=== PATIENT | female | born 1970 | race Caucasian/White ===

== ENCOUNTER → 2016-07-17 | Day surgery (SDC) | payer OTHER ==
[2016-06-14 12:38] VITALS: Ht 167.6 cm; Wt 61.8 kg
[~2016-07-17] VITALS: Ht 167.6 cm; Wt 61.8 kg
[~2016-07-17] MED LIST: ATROPINE SULFATE 0.1 MG/ML 5ML SYR IV PRN; CEFAZOLIN 1000MG/55 ML D5W IV SCH; CETI10TA10 PO; DEXAMETHASONE SOD INJ 4 MG/ML VIAL ONE; EpHEDrine SULFATE INJ 50 MG/ML AMP IV PRN; EpINEphrine INJ 1MG/ML AMP 1 MG/ML AMP ONE; FENTANYL CITRATE INJ 50 MCG/1 ML 2 ML VIAL ONE; FLUT0.15 NAE; KETO10TA PO; KETOROLAC TROMETHAMINE 30 MG/ML VIAL ONE; LACTATED RINGER'S 1000ML 1,000 ML IV SCH; LIDOCAINE HCL 2% 2 ML VIAL (20MG/ML) ONE; MIDAZOLAM HCL 1 MG/ML 2ML VIAL ONE; ONDANSETRON INJ 2 MG/ML 2 ML VIAL IV PRN; ONDANSETRON INJ 2 MG/ML 2 ML VIAL ONE; OXYC-57 PO; OXYCODONE/ACETAMINOPHEN 5-325 TAB PO PRN; PROPOFOL IV EMULSION 10 MG/ML 20 ML VIAL IV ONE; ROPIVACAINE 0.5% 5 MG/ML 30 ML VIAL ONE; SODIUM CHLORIDE 0.9% 1000ML 1,000 ML IV SCH
--- NOTE | 2016-07-17 06:59 | History & Physical Bridge - [place] ---
H&P Re-Evaluation Bridge Note: I have examined the patient, reviewed the History & Physical and in the interval since the performance of the History & Physical I have noted the following changes of clinical significance: No changes noted
--- NOTE | 2016-07-17 08:46 | [facility] Post Operative Brief Note ---
Immediate Operative Summary Operative Date Jul 17, 2016. Pre-Operative Diagnosis Right knee medial and lateral meniscal tear, anterior cruciate ligament tear Post-Operative Diagnosis Same as preop + DJD Procedure(s) Performed Right Knee Arthroscopy, Partial Medial and lateral Meniscectomy, Chondroplasty of Medial Femoral Condyle Surgeon Dr. Zamora Quality Rn Surgeon(s) Marino Jordan PA-C Estimated Blood Loss minimal Findings Medial + Lateral Meniscus Tears + DJD Specimens None Anesthesia General Complication(s) None Disposition Recovery Room / PACU
--- NOTE | 2016-07-17 08:47 | Discharge Instructions-SurgCtr ---
Discharge Instructions Date of Service Jul 17, 2016. Visit Reason for Visit: Right Knee Acl, Medial Meniscus Tears Discharge Discharge Diagnosis / Problem: RIGHT MEDIAL AND LATERAL MENISCUS TEARS, ACL TEAR Discharge Goals Goal(s): Decrease discomfort, Improve function, Therapeutic intervention Activity Recommendations Activity Limitations: per Instructions/Follow-up section Weightbearing Status: Right weightbearing (as tolerated) Anesthesia . Post Anesthesia Instructions: If you have had General Anesthesia or IV Sedation: * Do not drive today. * Resume driving when surgeon permits. * Do not make important decisions or sign legal documents today. * Call surgeon for: 1. Temperature elevations greater than 101 degrees F. 2. Uncontrollable pain. 3. Excessive bleeding. 4. Persistent nausea and vomiting. 5. Medication intolerance (nausea, vomiting or rash). * For nausea and vomiting use only clear liquids such as: tea, soda, bouillon until nausea subsides, then gradually increase diet as tolerated. * If you have any concerns or questions, call your surgeon's office. If physician is unavailable and it is an emergency, call 911 or go to the nearest emergency room. . Instructions / Follow-Up Instructions / Follow-Up MEDICATIONS: * Resume previous medications unless instructed otherwise by your surgeon. * Always take pain medication on a full stomach or with food to avoid upset stomach. * Do not drink alcohol or drive while taking narcotics. * Ibuprofen or Tylenol may be taken if narcotic not needed. NO IBUPROFEN WHILE TAKING TORADOL SPECIAL CARE INSTRUCTIONS: __ None _X_ Keep extremity elevated and iced x 48 hours; apply ice 20-30 minutes 8-10 times/day. May remove at night. __ Crutches __ May discard when able __ Brace/Post-op shoe __ 24 hrs/day __ Remove at night _X_ Dressing __ Maintain until seen in office, may shower with plastic over site _X_ Remove dressings in 24-48 hours and then may shower _X_ Cover incisions with band-aids after showering __ Do not remove steri-strips Call physician if chills or temperature rises above 102 degrees or pain unrelieved by prescribed pain medications. Office [phone] FOLLOW UP IN 2 WEEKS Diet Recommendations Home Diet: resume previous diet Procedures Procedures Performed: Right Knee Arthroscopy, Partial Medial and lateral Meniscectomy, Chondroplasty of Medial Femoral Condyle Pending Studies Studies pending at discharge: no Medical Emergencies . Who to Call and When: Medical Emergencies: If at any time you feel your situation is an emergency, please call 911 immediately. . Non-Emergent Contact Non-Emergency issues call your: Surgeon . . "Provider Documentation" section prepared by Mitchell Jordan. .
--- NOTE | 2016-07-17 09:07 | OPERATIVE REPORT ---
DATE OF OPERATION: 07/17/2016 SURGEON: Dr. Ryan Zamora. RESORT MANAGER: GRANT Preston PREOPERATIVE DIAGNOSES: 1. Right anterior cruciate ligament deficient knee. 2. Right knee medial meniscus tear. 3. Right knee lateral meniscus tear. POSTOPERATIVE DIAGNOSES: 1. Right knee anterior cruciate ligament tear off the femur. 2. Right knee medial meniscus tear. 3. Right knee lateral meniscus tear. 4. Right knee degenerative joint disease with some grade 2 chondrosis of the medial femoral condyle. PROCEDURES PERFORMED: 1. Right knee exam under anesthesia. 2. Right knee diagnostic arthroscopy. 3. Right knee arthroscopic partial medial meniscectomy. 4. Right knee arthroscopic partial lateral meniscectomy. 5. Right knee chondroplasty of the medial femoral condyle. COMPLICATIONS: None. ESTIMATED BLOOD LOSS: Minimal. TOURNIQUET TIME: 35 minutes at 300 mmHg. ANESTHESIA: General. SPECIMENS: None. OPERATIVE INDICATIONS: The patient is a 46-year-old female who injured her knee about 2-1/2 months ago, skiing. She was seen and diagnosed with an ACL and MCL tear. On MRI, she also had a medial and lateral meniscus tears. She restored her range of motion. Her MCL has healed. We were initially planning to fix her ACL, but she elected to hold off on that and just to have her meniscus addressed. The patient elected to proceed with a partial medial and partial lateral meniscectomies. OPERATIVE FINDINGS: Examination under anesthesia of the right knee revealed a small knee effusion. Her range of motion is 0-135. She had fairly good endpoint to a Matti test, but did have significant more translation on the right side than the left. She had a grade 1 pivot glide only. No significant varus or valgus instability. Enid's revealed a little bit of adhesiolysis with terminal flexion. Enid's test was negative. ARTHROSCOPIC FINDINGS: Arthroscopic findings revealed a small knee effusion. The undersurface of the patella and trochlea were well preserved. In the intercondylar notch, the ACL looked pretty normal, but it was clearly injured at its femoral attachment. It was a little bit scarred down to the PCL. The PCL was intact. In the medial compartment, there was a complex degenerative tear of the posterior horn of the medial meniscus. There were some grade 2 changes and flap tears of the cartilage at the end of the medial femoral condyle. In the lateral compartment, there was a complex lateral meniscus tear with a portion of this flipped into the notch area just posterior to the ACL. There were some mild arthritic changes. OPERATIVE PROCEDURE: The patient was taken to the operating room, identified and placed on the operating table in the supine position. All contact areas were appropriately padded. IV antibiotics were provided by anesthesia team. A general anesthetic was implemented by anesthesia team. Right thigh tourniquet was then placed. The right knee was then examined under anesthesia with findings as described above. The right leg was then prepped and draped in the usual sterile fashion. The right leg was elevated and exsanguinated with Esmarch and tourniquet was placed at 300 mmHg. Routine right knee arthroscopy was then performed through typical anteromedial and anterolateral portals. Superior outflow portal was established for outflow. I did have to resect some of the fat pad in order to adequately see. I probed the ACL. The findings were as described above. We did not need to do any ACL work as there was nothing impinging motion. Attention was then drawn to the medial compartment. I probed the medial meniscus. It was clearly unstable posteriorly. I removed the posterior horn of the medial meniscus tear in a piecemeal fashion. I was convinced that without doing this, she would have developed a bucket-handle tear over time. I did use the shaver to debride the loose cartilage at the end of the medial femoral condyle, as it was towards the notch area where there some loose flaps. Attention was then drawn to the lateral meniscus. We did use motorized and hand controlled instruments. A partial lateral meniscectomy was then performed. I resected the anterior and posterior flap portions of this tear and a part in the intercondylar notch area. There was some scuffing of the rest of the lateral meniscus, which I left intact. It was clearly stable. Once this was complete, the arthroscopic instruments were placed throughout the knee joint. All extraneous debris was removed. The arthroscopic instruments were removed from the joint. The portals were closed with 3-0 Prolene suture in a simple fashion. The knee was injected with 30 mL of 0.5% ropivacaine with epinephrine and 30 mg of Toradol. A sterile dressing with Xeroform, 4 x 4, sterile cast padding and Shilo bandage were applied. The tourniquet was then let down for final tourniquet time of 35 minutes. The patient was then brought out of general anesthesia and transferred to the recovery room in stable condition. The patient tolerated the procedure well with no complications. All needle and sponge counts were correct at the end of the operation. I attest to the content of the Intraoperative Record and any orders documented therein. Any exceptions are noted below. MTDD
[2016-07-17] MEDS: FENTANYL CITRATE INJ 50 MCG/1 ML 2 ML VIAL IV PRN ×4 (09:08→09:31)
[2016-07-17 10:05] VITALS: TEMP 37
[2016-07-17 10:25] VITALS: BP 125/80; PULSE 81; O2SAT 100
--- NOTE | 2016-07-17 10:25 | Anesthesia Progress Nt - [facility] ---
Anesthesia Post Op Note Date & Time Jul 17, 2016 at 10:25 Vital Signs Pain Intensity: 4.0 Vital Signs Past 12 Hours Date Time Temp Pulse Resp B/P Pulse Ox O2 Delivery O2 Flow Rate FiO2 07/17/16 10:05 37.0 82 16 126/82 98 Room Air 07/17/16 09:46 80 15 07/17/16 09:46 77 15 100 07/17/16 09:45 135/93 07/17/16 09:43 36.7 80 12 135/93 100 Room Air 07/17/16 09:41 83 9 07/17/16 09:41 86 9 100 07/17/16 09:40 139/91 07/17/16 09:36 95 12 137/82 100 07/17/16 09:36 92 12 07/17/16 09:31 91 14 07/17/16 09:31 90 14 100 07/17/16 09:30 143/94 07/17/16 09:26 90 12 07/17/16 09:26 91 12 100 07/17/16 09:25 132/89 07/17/16 09:21 93 16 07/17/16 09:21 93 16 100 07/17/16 09:20 142/85 07/17/16 09:17 130/93 07/17/16 09:16 97 13 100 07/17/16 09:16 95 13 07/17/16 09:11 93 9 100 07/17/16 09:11 92 9 07/17/16 09:06 96 10 133/89 100 07/17/16 09:06 95 10 07/17/16 09:01 95 11 137/89 100 07/17/16 09:01 97 11 07/17/16 08:56 89 7 07/17/16 08:56 88 7 100 07/17/16 08:55 137/89 07/17/16 08:52 36.3 88 12 134/87 100 Mask 6 07/17/16 08:51 87 13 07/17/16 08:51 89 13 134/87 100 07/17/16 06:45 36.7 87 16 119/85 97 Room Air Notes Mental Status: alert / awake / arousable, participated in evaluation Pt Amnestic to Procedure: Yes Nausea / Vomiting: adequately controlled Pain: adequately controlled Airway Patency, RR, SpO2: stable & adequate BP & HR: stable & adequate Hydration State: stable & adequate Anesthetic Complications: no major complications apparent
== END | disposition home or self-care (01) ==
LOC: X.SURG 06:33
PROVIDERS: ATTEND Orthopaedic Surgery Sports Medicine
DX: S83.241A Other tear of medial meniscus, current injury, right knee, initial encounter (principal); S83.281A Other tear of lateral meniscus, current injury, right knee, initial encounter; S83.511A Sprain of anterior cruciate ligament of right knee, initial encounter; M17.11 Unilateral primary osteoarthritis, right knee; X58.XXXA Exposure to other specified factors, initial encounter; Y93.23 Activity, snow (alpine) (downhill) skiing, snowboarding, sledding, tobogganing and snow tubing

== ENCOUNTER → 2016-09-18 | Outpatient (CLI) | payer OTHER ==
[~2016-09-18] MED LIST changes: -ATROPINE SULFATE 0.1 MG/ML 5ML SYR IV PRN; -CEFAZOLIN 1000MG/55 ML D5W IV SCH; -DEXAMETHASONE SOD INJ 4 MG/ML VIAL ONE; -EpHEDrine SULFATE INJ 50 MG/ML AMP IV PRN; -EpINEphrine INJ 1MG/ML AMP 1 MG/ML AMP ONE; -FENTANYL CITRATE INJ 50 MCG/1 ML 2 ML VIAL ONE; -KETO10TA PO; -KETOROLAC TROMETHAMINE 30 MG/ML VIAL ONE; -LACTATED RINGER'S 1000ML 1,000 ML IV SCH; -LIDOCAINE HCL 2% 2 ML VIAL (20MG/ML) ONE; -MIDAZOLAM HCL 1 MG/ML 2ML VIAL ONE; -ONDANSETRON INJ 2 MG/ML 2 ML VIAL IV PRN; -ONDANSETRON INJ 2 MG/ML 2 ML VIAL ONE; -OXYCODONE/ACETAMINOPHEN 5-325 TAB PO PRN; -PROPOFOL IV EMULSION 10 MG/ML 20 ML VIAL IV ONE; -ROPIVACAINE 0.5% 5 MG/ML 30 ML VIAL ONE; -SODIUM CHLORIDE 0.9% 1000ML 1,000 ML IV SCH
== END ==
LOC: C.PAPS 18:02
PROVIDERS: ATTEND Obstetrics & Gynecology
DX: Z12.4 Encounter for screening for malignant neoplasm of cervix (principal); Z85.41 Personal history of malignant neoplasm of cervix uteri

== ENCOUNTER → 2017-03-19 | Day surgery (SDC) | payer OTHER ==
[~2017-03-19] VITALS: Ht 165.1 cm; Wt 62.7 kg
[~2017-03-19] MED LIST changes: +ATROPINE SULFATE 0.1 MG/ML 5ML SYR IV PRN; +BUPIVACAINE 0.25% 2.5MG/ML PF 10 ML VIAL ONE; +CEFAZOLIN 1000MG IV PUSH 5 ML IV SCH; +CEFAZOLIN SOD 1 GM VIAL ONE; +CEFAZOLIN SOD 1000MG/5 ML IV PUSH IV ONE; -CETI10TA10 PO; +DEXAMETHASONE SOD INJ 4 MG/ML VIAL ONE; +EpHEDrine SULFATE INJ 50 MG/ML AMP IV PRN; +EpINEphrine HCL INJ 1 MG/ML 5ML SYRINGE ONE; +FENTANYL CITRATE INJ 50 MCG/1 ML 2 ML VIAL ONE; +HYDROmorphone INJ 0.5 MG/0.5 ML SYR ONE; +HYDROmorphone INJ 1 MG/ML SYR IV PRN; +KETO10TA PO; +KETOROLAC TROMETHAMINE 30 MG/ML VIAL ONE; +LACTATED RINGER'S 1000ML 1,000 ML IV SCH; +LIDOCAINE HCL 2% 2 ML VIAL (20MG/ML) ONE; +MIDAZOLAM HCL 1 MG/ML 2ML VIAL ONE; +ONDANSETRON INJ 2 MG/ML 2 ML VIAL IV PRN; +ONDANSETRON INJ 2 MG/ML 2 ML VIAL ONE; +OXYCODONE/ACETAMINOPHEN 5-325 TAB PO PRN; +PROPOFOL IV EMULSION 10 MG/ML 20 ML VIAL IV ONE; +ROPIVACAINE 0.5% 5 MG/ML 30 ML VIAL ONE; +SODIUM CHLORIDE 0.9% 1000ML 1,000 ML IV SCH
[2017-03-19 09:36] VITALS: Ht 165.1 cm; Wt 62.7 kg
--- NOTE | 2017-03-19 13:33 | Discharge Instructions-SurgCtr ---
Discharge Instructions Date of Service Mar 19, 2017. Visit Reason for Visit: Right Knee Rupture Acl, Knee Pain Discharge Discharge Diagnosis / Problem: right knee ACL tear, lateral meniscus tear Discharge Goals Goal(s): Decrease discomfort, Improve function, Therapeutic intervention Activity Recommendations Activity Limitations: per Instructions/Follow-up section Weightbearing Status: Right weightbearing (as tolerated with brace ) Anesthesia . Post Anesthesia Instructions: If you have had General Anesthesia or IV Sedation: * Do not drive today. * Resume driving when surgeon permits. * Do not make important decisions or sign legal documents today. * Call surgeon for: 1. Temperature elevations greater than 101 degrees F. 2. Uncontrollable pain. 3. Excessive bleeding. 4. Persistent nausea and vomiting. 5. Medication intolerance (nausea, vomiting or rash). * For nausea and vomiting use only clear liquids such as: tea, soda, bouillon until nausea subsides, then gradually increase diet as tolerated. * If you have any concerns or questions, call your surgeon's office. If physician is unavailable and it is an emergency, call 911 or go to the nearest emergency room. . Instructions / Follow-Up Instructions / Follow-Up MEDICATIONS: * Resume previous medications unless instructed otherwise by your surgeon. * Always take pain medication on a full stomach or with food to avoid upset stomach. * Do not drink alcohol or drive while taking narcotics. * Ibuprofen or Tylenol may be taken if narcotic not needed. No ibuprofen while taking toradol SPECIAL CARE INSTRUCTIONS: __ None _x_ Keep extremity elevated and iced x 48 hours; apply ice 20-30 minutes 8-10 times/day. May remove at night. _x_ Crutches __ May discard when able _x_ Brace/Post-op shoe __ 24 hrs/day __ Remove at night _x_ Dressing __ Maintain until seen in office, may shower with plastic over site _x_ Remove dressings in 24-48 hours and then may shower x__ Cover incisions with band-aids after showering x__ Do not remove steri-strips Call physician if chills or temperature rises above 102 degrees or pain unrelieved by prescribed pain medications. Office [phone] follow up in 2 weeks Diet Recommendations Home Diet: resume previous diet Procedures Procedures Performed: Right Knee Arthroscopic Anterior Cruciate Ligament Reconstruction Using Anterior Tibialis Tendon Allograft, Partial Lateral Meniscectomy Pending Studies Studies pending at discharge: no Medical Emergencies . Who to Call and When: Medical Emergencies: If at any time you feel your situation is an emergency, please call 911 immediately. . Non-Emergent Contact Non-Emergency issues call your: Surgeon . . "Provider Documentation" section prepared by Mitchell Jordan. .
--- NOTE | 2017-03-19 13:35 | [facility] Post Operative Brief Note ---
Immediate Operative Summary Operative Date Mar 19, 2017. Pre-Operative Diagnosis Right Knee Rupture Anterior Cruciate Ligament, Knee Pain Post-Operative Diagnosis Same + Lateral Meniscus Tear + DJD Procedure(s) Performed Right Knee Arthroscopic Anterior Cruciate Ligament Reconstruction Using Anterior Tibialis Tendon Allograft, Partial Lateral Meniscectomy Surgeon Dr. Zamora Technical Spec Surgeon(s) Nasim Jordan PA-C Estimated Blood Loss Minimal Findings Right ACL Tear + DJD + Lateral Meniscus Tear Specimens None Anesthesia General Complication(s) None Disposition Recovery Room / PACU
[2017-03-19] MEDS: FENTANYL CITRATE INJ 50 MCG/1 ML 2 ML VIAL IV PRN ×4 (13:46→14:11)
[2017-03-19 15:00] VITALS: TEMP 37
--- NOTE | 2017-03-19 15:04 | OPERATIVE REPORT ---
DATE OF OPERATION: 03/19/2017 SURGEON: Ryan Zamora MD AIR[employer] MECHANIC: GRANT Preston PREOPERATIVE DIAGNOSES: 1. 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 2. Right knee degenerative joint disease. POSTOPERATIVE DIAGNOSES: 1. 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 2. Right knee small inner rim of the lateral meniscus tear. 3. Right knee degenerative joint disease. PROCEDURES PERFORMED: 1. Right knee exam under anesthesia. 2. Right knee diagnostic arthroscopy. 3. Right knee arthroscopic anterior cruciate ligament reconstruction with an 8-mm tibialis anterior allograft. 4. Right knee partial lateral meniscectomy. COMPLICATIONS: None. ESTIMATED BLOOD LOSS: Minimal. TOURNIQUET TIME: 85 minutes at 300 mmHg. OPERATIVE INDICATIONS: The patient is a 46-year-old fairly active female who injured her knee initially just about a year ago when skiing. She was seen in clinic and diagnosed with an ACL tear. An MRI revealed medial and lateral meniscus tears. We initially had considered fixing her ACL, but she elected just to proceed with the arthroscopy and meniscal work at that time. She has recovered from that. She continued to have a sense of instability in her knee. She elected to proceed with ACL reconstruction. OPERATIVE FINDINGS: Examination under anesthesia of the right knee revealed no significant effusion. Range of motion was full extension to 135 degrees of flexion. She did have an increased translation in Matti compared to the opposite side, but fairly good endpoint. She had a grade 1-2 pivot. She had no varus or valgus instability. Enid's is negative for mechanical symptoms. There was no posterolateral rotatory instability. ARTHROSCOPIC FINDINGS: Arthroscopic findings revealed no significant effusion. She did have a little bit wear and grade 1 changes of the patellofemoral joint. In the intercondylar notch, the ACL was scarred down to the PCL. There was no attachment to the lateral wall. The PCL was intact. In the medial compartment, the articular surface showed some Grade 2 changes and the meniscus was fairly well maintained. The previous meniscectomy was apparent, but there were no new meniscal tears. In the lateral compartment , there were some mild degenerative changes. She did have just a small inner rim of the lateral meniscus tear in the white zone. OPERATIVE PROCEDURE: The patient was taken to the operating room, identified and placed on the operating table in the supine position. All contact areas were appropriately padded. IV antibiotics were provided by anesthesia team. An adductor canal block was applied in the holding area. A right thigh tourniquet was then placed. There general anesthetic was implemented. The patient did receive IV antibiotics. The right knee was then examined under anesthesia with the findings as described above. The right leg was then prepped and draped in the usual sterile fashion. The right leg was elevated and exsanguinated with Esmarch and tourniquet was placed at 300 mmHg. About 3-4 cm incision was made directly over the hamstring tendons. Sharp dissection was carried out through the subcutaneous tissues down to the level of the sartorius fascia. The subcutaneous tissue was mobilized circumferentially. An oblique incision was made in the sartorius fascia and the hamstring tendons were then taken sharply off the anterior face of the tibia. I isolated each tendon and a #2 Ti-Cron whipstitch was placed in the end of each tendon. Upon harvesting the tendons, both of them cut at about 10 cm in length. The tendons themselves were quite small and I got up into a very fairly thin tendon tissue pretty quickly. In light of this, I did not feel I could use these tendons. So, we elected to use the tibialis anterior allograft. We called for a tibialis anterior allograft tendon, which took about 25 minutes to obtain. While this was done, a routine right knee arthroscopy was then performed through typical anteromedial and anterolateral portals. A superolateral outflow portal was established for outflow. The remnant of the ACL was excised. A small notchplasty was performed. I then examined the meniscus. With the use of motorized and hand control instruments, I did resect the inner rim of the lateral meniscus, which was a fairly small segment of her lateral meniscus. The other edges of a previous partial meniscectomy looked to be healed nicely. Attention was then drawn towards the ACL reconstruction. With the use of the tibial guide set at 50 degrees, a guidewire was placed in the area of the proposed tibial tunnel. It was overreamed with the 8-mm solid reamer. The tunnel was cleaned of all debris. At this point, the allograft had arrived. It was thawed. The allograft itself measured 8 mm in diameter when folded over. The ends of the allograft were for about 5 cm and a #2 Ti-Cron suture was placed in each end of the tendon. The tendon was then marked and set aside for later implantation. The knee was maximally flexed. The 6-mm [id number] guide was then placed in the anteromedial portal. The knee was maximally flexed and a guidewire was placed in the area of the proposed femoral tunnel. It was overreamed with a 4.5-mm Endobutton drill bit. The tunnel length measured about 32 mm in length. Therefore, we selected 10-mm Endobutton. The tunnel was cleaned of all debris. I then overreamed the guidewire with an 8-mm acorn reamer for a distance of 28 mm. I tried to stay short of the cortex, but on examining the whole, I felt that we had breached the cortex and the standard Endobutton would not work. Therefore, the Xtendobutton device was obtained. A 10-mm closed loop Endobutton was selected. The graft was then placed over the closed loop Endobutton, which was passed through the Xtendobutton. A Beath pin was then used to pass the graft. The Xtendobutton was passed through the tibial tunnel up into the femoral tunnel and flipped. The graft was cycled several times and brought out into full extension. There was no impingement. The graft was appropriately tensioned. I then brought the knee out into full extension. The graft was then tensioned with the Intrafix tensioner at 20 pounds of tension. The tunnel was then dilated. A small Biocryl Intrafix sheath was placed followed by a 6.8 Biocryl Intrafix screw. The knee was examined and there was no pivot and no Matti test. I placed the scope back in the knee and the graft was appropriately tensioned in both flexion and extension. The scope was then placed throughout the knee and all extraneous debris was removed. The arthroscopic instruments were then removed from the joint. The portals were then closed with 3-0 Prolene suture in a simple fashion. The knee was then injected with 30 mL of 0.5% ropivacaine with epinephrine and 30 mg of Toradol. The tourniquet was then let down for a tourniquet time of 85 minutes. Hemostasis was assured with use of electrocautery. The anteromedial wound was then irrigated. The subcutaneous tissues were then closed with 2-0 Dexon suture in a buried interrupted fashion. Skin was closed with 3-0 Prolene suture in a subcuticular fashion. The leg was then cleaned and dried and a sterile dressing of Xeroform, 4 x 4, sterile cast padding, Shilo bandage, cold pack, and knee immobilizer applied. The patient then brought out of general anesthesia and transferred to the recovery room in stable condition. The patient tolerated the procedure well with no complications. All needle and sponge counts were correct at the end of the operation. I attest to the content of the Intraoperative Record and any orders documented therein. Any exceptions are noted below. MTDD
[2017-03-19 15:40] VITALS: BP 117/72; PULSE 92; O2SAT 99
--- NOTE | 2017-03-19 15:54 | Anesthesiology Progress Note ---
Anesthesia Post Op Note Date & Time Mar 19, 2017 at 15:54 Vital Signs Pain Intensity: 5.0 Vital Signs Past 12 Hours Date Time Temp Pulse Resp B/P (MAP) Pulse Ox O2 Delivery O2 Flow Rate FiO2 03/19/17 15:40 92 16 117/72 (87) 99 Room Air 03/19/17 15:00 37.0 93 16 127/84 (98) 98 Room Air 03/19/17 14:52 89 16 126/91 (100) 100 Room Air Mask 03/19/17 14:46 133/87 03/19/17 14:45 94 13 100 03/19/17 14:45 92 13 03/19/17 14:41 121/83 03/19/17 14:40 90 11 130/88 100 03/19/17 14:40 90 11 03/19/17 14:35 96 6 100 03/19/17 14:35 95 6 03/19/17 14:30 96 10 100 03/19/17 14:30 96 10 03/19/17 14:26 120/82 03/19/17 14:25 85 7 100 03/19/17 14:25 86 7 03/19/17 14:21 118/82 03/19/17 14:20 85 10 100 03/19/17 14:20 84 10 03/19/17 14:16 122/79 03/19/17 14:15 83 12 03/19/17 14:15 82 12 100 03/19/17 14:11 126/75 03/19/17 14:10 88 12 100 03/19/17 14:10 88 12 03/19/17 14:06 120/78 03/19/17 14:05 82 14 100 03/19/17 14:05 84 14 03/19/17 14:01 119/83 03/19/17 14:00 82 10 03/19/17 14:00 83 10 100 03/19/17 13:56 120/84 03/19/17 13:55 89 16 100 03/19/17 13:55 90 16 03/19/17 13:51 124/83 03/19/17 13:50 84 29 03/19/17 13:50 85 29 100 03/19/17 13:46 120/97 03/19/17 13:45 91 13 100 03/19/17 13:45 92 13 03/19/17 13:41 122/69 03/19/17 13:40 99 12 100 03/19/17 13:40 100 12 03/19/17 13:36 125/91 03/19/17 13:35 104 03/19/17 13:35 104 100 03/19/17 13:35 37.1 107 12 125/91 100 Mask 6 03/19/17 11:25 0 03/19/17 11:24 85 8 100 03/19/17 11:24 85 03/19/17 11:23 79 12 100 03/19/17 11:23 79 03/19/17 11:22 78 03/19/17 11:22 79 5 100 03/19/17 11:21 119/81 03/19/17 11:17 81 03/19/17 11:17 79 11 100 03/19/17 11:16 141/85 03/19/17 11:15 134/87 03/19/17 11:14 80 0 99 03/19/17 11:14 77 03/19/17 11:09 88 03/19/17 11:09 88 0 97 03/19/17 11:04 82 03/19/17 11:04 82 0 99 03/19/17 10:59 87 0 03/19/17 10:54 82 0 03/19/17 10:49 81 0 03/19/17 10:44 81 0 03/19/17 10:39 83 0 03/19/17 10:34 77 0 03/19/17 10:29 83 0 03/19/17 10:24 86 0 03/19/17 10:19 79 0 03/19/17 10:14 75 0 03/19/17 10:09 80 0 03/19/17 10:04 84 03/19/17 09:26 36.8 82 22 124/79 (94) 100 Room Air Notes Mental Status: alert / awake / arousable, participated in evaluation Pt Amnestic to Procedure: Yes Nausea / Vomiting: adequately controlled Pain: adequately controlled Airway Patency, RR, SpO2: stable & adequate BP & HR: stable & adequate Hydration State: stable & adequate Anesthetic Complications: no major complications apparent
== END | disposition home or self-care (01) ==
LOC: X.SURG 09:17
PROVIDERS: ATTEND Orthopaedic Surgery Sports Medicine
DX: S83.281A Other tear of lateral meniscus, current injury, right knee, initial encounter (principal); M23.51 Chronic instability of knee, right knee; M17.11 Unilateral primary osteoarthritis, right knee; K21.9 Gastro-esophageal reflux disease without esophagitis; Z90.710 Acquired absence of both cervix and uterus; Z90.89 Acquired absence of other organs; Z85.41 Personal history of malignant neoplasm of cervix uteri; X58.XXXA Exposure to other specified factors, initial encounter; Y93.23 Activity, snow (alpine) (downhill) skiing, snowboarding, sledding, tobogganing and snow tubing

== ENCOUNTER → 2017-11-20 | Outpatient (CLI) | payer OTHER ==
[~2017-11-20] MED LIST changes: -ATROPINE SULFATE 0.1 MG/ML 5ML SYR IV PRN; -BUPIVACAINE 0.25% 2.5MG/ML PF 10 ML VIAL ONE; -CEFAZOLIN 1000MG IV PUSH 5 ML IV SCH; -CEFAZOLIN SOD 1 GM VIAL ONE; -CEFAZOLIN SOD 1000MG/5 ML IV PUSH IV ONE; -DEXAMETHASONE SOD INJ 4 MG/ML VIAL ONE; -EpHEDrine SULFATE INJ 50 MG/ML AMP IV PRN; -EpINEphrine HCL INJ 1 MG/ML 5ML SYRINGE ONE; -FENTANYL CITRATE INJ 50 MCG/1 ML 2 ML VIAL ONE; -HYDROmorphone INJ 0.5 MG/0.5 ML SYR ONE; -HYDROmorphone INJ 1 MG/ML SYR IV PRN; -KETO10TA PO; -KETOROLAC TROMETHAMINE 30 MG/ML VIAL ONE; -LACTATED RINGER'S 1000ML 1,000 ML IV SCH; -LIDOCAINE HCL 2% 2 ML VIAL (20MG/ML) ONE; -MIDAZOLAM HCL 1 MG/ML 2ML VIAL ONE; -ONDANSETRON INJ 2 MG/ML 2 ML VIAL IV PRN; -ONDANSETRON INJ 2 MG/ML 2 ML VIAL ONE; -OXYC-57 PO; -OXYCODONE/ACETAMINOPHEN 5-325 TAB PO PRN; -PROPOFOL IV EMULSION 10 MG/ML 20 ML VIAL IV ONE; -ROPIVACAINE 0.5% 5 MG/ML 30 ML VIAL ONE; -SODIUM CHLORIDE 0.9% 1000ML 1,000 ML IV SCH
== END | disposition home or self-care (01) ==
LOC: C.PAPS 11:10
PROVIDERS: ATTEND Obstetrics & Gynecology
DX: Z12.4 Encounter for screening for malignant neoplasm of cervix (principal)